=== PATIENT | female | born 1970 | race African-American/Black ===

== ENCOUNTER 2019-07-02 22:47 | Emergency (ER) | payer OTHER ==
[~2019-07-02] VITALS: Ht 152.4 cm; Wt 83.5 kg
[2019-07-02 23:53] LABS: ABSOLUTE NEUTROPHILS 6.2 thou/uL (1.4-8.2); BASOPHILS 0.7 % (0.0-2.0); EOSINOPHILS 0.5 % (0.0-3.0); HEMATOCRIT 38.3 % (37.0-47.0); HEMOGLOBIN 12.4 gm/dL (12.0-15.0); LYMPHOCYTES 17.8 % (24.0-44.0); MCH 28.4 pg (26.0-34.0); MCHC 32.5 g/dL (28.0-37.0); MCV 87.6 fL (80.0-100.0); MONOCYTES 7.8 % (1.0-8.0); PLATELET COUNT 302 thou/uL (150-400); POLYS 73.2 % (36.0-66.0); RBC 4.38 mil/uL (4.20-5.00); RDW 14.4 % (10.5-14.5); WBC 8.6 thou/uL (4.0-11.0)
[2019-07-02 23:59] LABS: CALCIUM 8.6 mg/dL (8.5-10.1); CREATININE 0.9 mg/dL (0.6-1.0); POTASSIUM 3.6 mmol/L (3.5-5.1)
[2019-07-02] MEDS ORDERED: EXCEDRIN MIGRA1 EAC1 PO (23:59)
[2019-07-03 00:06] LABS: ALBUMIN 3.2 g/dL (3.4-5.0); TOTAL BILIRUBIN 0.3 mg/dL (<0.1-1.0); TOTAL PROTEIN 6.9 g/dL (6.4-8.2)
[2019-07-03] MEDS ORDERED: ACETAMINOPHEN500 M1 PO (00:09)
[2019-07-03] MEDS ORDERED: REGLAN 10 MG TA10 MG PO (00:09)
[2019-07-03 00:37] VITALS: BP 118/79
== END 2019-07-03 00:49 | disposition home or self-care (01) ==
LOC: ER 22:47
PROVIDERS: Emergency Medicine
DX: G43.909 Migraine, unspecified, not intractable, without status migrainosus (principal); R11.10 Vomiting, unspecified

== ENCOUNTER 2019-07-05 19:36 | Emergency (ER) | payer OTHER ==
[~2019-07-05] VITALS: Ht 152.4 cm; Wt 83.0 kg
[~2019-07-05 19:36] MED LIST: ACETAMINOPHEN500 M1 PO; EXCEDRIN MIGRA1 EAC1 PO; REGLAN 10 MG TA10 MG PO
[2019-07-05 20:41] LABS: URINE BILIRUBIN NEGATIVE (Negative); URINE BLOOD 3+ (Negative); URINE CLARITY CLEAR; URINE COLOR YELLOW; URINE GLUCOSE-RANDOM* NEGATIVE (Negative); URINE KETONES TRACE (Negative); URINE NITRITE-REFLEX NEGATIVE (Negative); URINE PROTEIN (DIPSTICK) 1+ (Negative); URINE SPECIFIC GRAVITY 1.025 (1.005-1.035); URINE UROBILINOGEN 0.2 E.U./dl (0.2-1.0)
[2019-07-05 20:42] LABS: URINE LEUKOCYTES-REFLEX 1+ (Negative)
[2019-07-05 20:50] LABS: CASTS None Seen /LPF (None Seen); CRYSTALS None Seen /LPF (None Seen); SQUAMOUS 0-3 Few /LPF (0-3); URINE WBC-REFLEX >25 Many /HPF (0-5)
[2019-07-05 20:51] LABS: URINE RBC 3-10 Few /HPF (0-2)
[2019-07-05 20:52] LABS: HEMATOCRIT 37.1 % (37.0-47.0); HEMOGLOBIN 12.3 gm/dL (12.0-15.0); MCH 28.6 pg (26.0-34.0); MCHC 33.1 g/dL (28.0-37.0); MCV 86.4 fL (80.0-100.0); PLATELET COUNT 254 thou/uL (150-400); RDW 14.8 % (10.5-14.5); WBC 10.6 thou/uL (4.0-11.0)
[2019-07-05 20:59] LABS: CALCIUM 9.2 mg/dL (8.5-10.1); CREATININE 0.9 mg/dL (0.6-1.0); POTASSIUM 3.3 mmol/L (3.5-5.1)
[2019-07-05 21:28] LABS: ABSOLUTE NEUTROPHILS 9.5 thou/uL (1.4-8.2); ANISOCYTOSIS 1+
[2019-07-05] MEDS ORDERED: DOXYCYCLINE 10100 MG PO (22:39)
[2019-07-05 23:05] VITALS: BP 132/74
== END 2019-07-05 23:06 | disposition home or self-care (01) ==
LOC: ER 19:36
PROVIDERS: Emergency Medicine
DX: J18.9 Pneumonia, unspecified organism (principal); N39.0 Urinary tract infection, site not specified; R50.9 Fever, unspecified; R11.2 Nausea with vomiting, unspecified; I10 Essential (primary) hypertension; K21.9 Gastro-esophageal reflux disease without esophagitis; G43.909 Migraine, unspecified, not intractable, without status migrainosus

== ENCOUNTER 2019-07-08 22:51 | Emergency (ER) | payer OTHER ==
[~2019-07-08] VITALS: Ht 152.4 cm; Wt 83.0 kg
[~2019-07-08 22:51] MED LIST changes: +DOXYCYCLINE 10100 MG PO
[2019-07-08] MEDS ORDERED: AUGMENTIN 875-1 EACH PO (23:58)
[2019-07-09 00:16] VITALS: BP 156/99
== END 2019-07-09 00:17 | disposition home or self-care (01) ==
LOC: ER 22:51
DX: T36.4X5A Adverse effect of tetracyclines, initial encounter (principal); R10.13 Epigastric pain; I10 Essential (primary) hypertension; K21.9 Gastro-esophageal reflux disease without esophagitis; G43.909 Migraine, unspecified, not intractable, without status migrainosus; K58.9 Irritable bowel syndrome, unspecified; E66.9 Obesity, unspecified; Z68.35 Body mass index [BMI] 35.0-35.9, adult; Y92.89 Other specified places as the place of occurrence of the external cause

== ENCOUNTER 2019-10-17 21:23 | Emergency (ER) | payer OTHER ==
[~2019-10-17] VITALS: Ht 157.5 cm; Wt 83.5 kg
[~2019-10-17 21:23] MED LIST changes: +AUGMENTIN 875-1 EACH PO
[2019-10-17] MEDS ORDERED: NORVASC 2.5 MG2.5 M1 PO (21:35)
[2019-10-17 22:22] LABS: HEMATOCRIT 37.3 % (37.0-47.0); HEMOGLOBIN 12.2 gm/dL (12.0-15.0); MCH 28.6 pg (26.0-34.0); MCHC 32.6 g/dL (28.0-37.0); MCV 87.8 fL (80.0-100.0); PLATELET COUNT 250 thou/uL (150-400); RBC 4.25 mil/uL (4.20-5.00); RDW 15.7 % (10.5-14.5); WBC 3.3 thou/uL (4.0-11.0)
[2019-10-17 22:48] LABS: CALCIUM 8.2 mg/dL (8.5-10.1); POTASSIUM 3.1 mmol/L (3.5-5.1)
[2019-10-17 23:26] LABS: ABSOLUTE NEUTROPHILS 1.5 thou/uL (1.4-8.2); PLATELET ESTIMATE NORMAL
[2019-10-17] MEDS ORDERED: AUGMENTIN 875-1 EACH PO (23:53)
[2019-10-17] MEDS ORDERED: PROAIR HFA8.5 GM INH (23:53)
[2019-10-18 00:07] VITALS: BP 120/72
== END 2019-10-18 00:08 | disposition home or self-care (01) ==
LOC: ER 21:23
PROVIDERS: Emergency Medicine
DX: J18.9 Pneumonia, unspecified organism (principal); R19.7 Diarrhea, unspecified; I10 Essential (primary) hypertension; G43.909 Migraine, unspecified, not intractable, without status migrainosus; K21.9 Gastro-esophageal reflux disease without esophagitis; K58.9 Irritable bowel syndrome, unspecified

== ENCOUNTER 2019-10-21 18:29 | Emergency (ER) | payer OTHER ==
[~2019-10-21] VITALS: Ht 157.5 cm; Wt 84.4 kg
[~2019-10-21 18:29] MED LIST changes: +NORVASC 2.5 MG2.5 M1 PO; +PROAIR HFA8.5 GM INH
[2019-10-21] MEDS ORDERED: ALBUTEROL2.5 MG/31 INH (21:43)
[2019-10-21] MEDS ORDERED: MAGNESIUM400 MG PO (21:43)
[2019-10-21] MEDS ORDERED: SENOKOT8.6 MG PO (21:45)
[2019-10-21 22:58] VITALS: BP 176/105
== END 2019-10-21 22:50 | disposition home or self-care (01) ==
LOC: ER 18:29
DX: K21.9 Gastro-esophageal reflux disease without esophagitis (principal); K59.00 Constipation, unspecified; R11.2 Nausea with vomiting, unspecified; T36.1X5A Adverse effect of cephalosporins and other beta-lactam antibiotics, initial encounter; I10 Essential (primary) hypertension; K58.9 Irritable bowel syndrome, unspecified; G43.909 Migraine, unspecified, not intractable, without status migrainosus; Y92.89 Other specified places as the place of occurrence of the external cause

== ENCOUNTER 2020-07-13 09:36 | Emergency (ER) | payer OTHER ==
[~2020-07-13] VITALS: Ht 172.7 cm; Wt 92.5 kg
[~2020-07-13 09:36] MED LIST changes: +ALBUTEROL2.5 MG/31 INH; +MAGNESIUM400 MG PO; +SENOKOT8.6 MG PO
[2020-07-13] MEDS ORDERED: TESSALON PERLE100 MG PO (10:51)
[2020-07-13 11:00] VITALS: BP 162/92
== END 2020-07-13 11:32 | disposition home or self-care (01) ==
LOC: ER 09:36
DX: R05 Cough (principal); F12.90 Cannabis use, unspecified, uncomplicated; I10 Essential (primary) hypertension; K21.9 Gastro-esophageal reflux disease without esophagitis; Z79.899 Other long term (current) drug therapy

== ENCOUNTER 2020-09-08 21:42 | Inpatient (IN) | payer OTHER ==
[~2020-09-08] VITALS: Ht 152.4 cm; Wt 98.9 kg
[~2020-09-08 21:42] MED LIST changes: +TESSALON PERLE100 MG PO
[2020-09-08 21:44] VITALS: BP 183/115
[2020-09-08 22:06] LABS: URINE BILIRUBIN NEGATIVE (Negative); URINE BLOOD 2+ (Negative); URINE CLARITY CLEAR; URINE COLOR YELLOW; URINE GLUCOSE-RANDOM* NEGATIVE (Negative); URINE KETONES NEGATIVE (Negative); URINE LEUKOCYTES-REFLEX NEGATIVE (Negative); URINE NITRITE-REFLEX NEGATIVE (Negative); URINE PROTEIN (DIPSTICK) NEGATIVE (Negative); URINE SPECIFIC GRAVITY 1.015 (1.005-1.035); URINE UROBILINOGEN 0.2 E.U./dl (0.2-1.0)
[2020-09-08 22:23] LABS: ABSOLUTE NEUTROPHILS 3.3 thou/uL (1.4-8.2); BASOPHILS 0.8 % (0.0-2.0); HEMATOCRIT 37.6 % (37.0-47.0); HEMOGLOBIN 12.3 gm/dL (12.0-15.0); MCH 28.4 pg (26.0-34.0); MCHC 32.6 g/dL (28.0-37.0); MONOCYTES 7.4 % (1.0-8.0); PLATELET COUNT 303 thou/uL (150-400); POLYS 48.8 % (36.0-66.0); RBC 4.32 mil/uL (4.20-5.00); WBC 6.7 thou/uL (4.0-11.0)
[2020-09-08 22:31] LABS: ANION GAP 9 mmol/L (7-16); BUN 13 mg/dL (7-18); CALCIUM 8.8 mg/dL (8.5-10.1); CHLORIDE 107 mmol/L (98-107); CO2 26 mmol/L (21-32); CREATININE 0.9 mg/dL (0.6-1.0); GLUCOSE 108 mg/dL (74-106); POTASSIUM 3.9 mmol/L (3.5-5.1); SODIUM 142 mmol/L (136-145)
[2020-09-08 22:38] LABS: BACTERIA-REFLEX None Seen /HPF (None Seen); CASTS None Seen /LPF (None Seen); CRYSTALS None Seen /LPF (None Seen); MUCUS None Seen strn/LPF (None Seen); SQUAMOUS None Seen /LPF (0-3); URINE RBC 0-2 Rare /HPF (0-2); URINE WBC-REFLEX None Seen /HPF (0-5)
[2020-09-08 22:42] LABS: ALBUMIN 3.5 g/dL (3.4-5.0); LIPASE 111 U/L (73-393); SGOT 13 U/L (15-37); SGPT 25 U/L (30-65); TOTAL BILIRUBIN 0.2 mg/dL (0.2-1.0); TROPONIN-I <0.06 ng/mL (<0.06)
[2020-09-09 00:02] VITALS: BP 168/93
[2020-09-09 00:50] VITALS: BP 168/105
[2020-09-09 01:10] VITALS: BP 157/89
--- NOTE | 2020-09-09 04:41 | NUR ---
Pt. admitted from the emergency room around 0100 via staff. She is alert and oriented. Admission assessment and history is completed. She c/o abdominal pain and ivp pain medication given (see emar) with relief noted.
[2020-09-09 07:27] VITALS: BP 152/87
--- NOTE | 2020-09-09 07:49 | NUR ---
PATIENT IN BATHROOM AND NEEDING ASSISTANCE AT 0720. ASSESSMENT CHARTED. NO MEDS AT TIME OF ASSESSMENT. VSS; HX OF HTN. PATIENT AMBULATED TO BR W ASSISTANCE FROM THIS NURSE AND VERY WEAK. PATIENT WAS PALE AND APPEARED TO ALMOST HAVE A SYNCOPAL EPISODE BEFORE GETTING INTO BED. VOICED SEVERE NAUSEA AND HAD 1 EPISODE OF EMESIS. PROVIDER PAGED. AWAITING ORDERS/FURTHER INSTRUCTIONS. HIGH FALL PRECAUTIONS IN PLACE D/T NEW ONSET OF WEAKNESS. WILL CONTINUE TO MONITOR
[2020-09-09 15:43] VITALS: BP 144/94
--- NOTE | 2020-09-09 19:57 | NUR ---
REVIEWED ASSESSMENT AND NOTE OF JESS IRONER OR PRESSER AND I AGREE.
[2020-09-09 20:19] VITALS: BP 127/80
--- NOTE | 2020-09-10 04:41 | NUR ---
ASSUMED CAFE OF PT AT 1900HRS. PT AOX4 AND LETS NEEDS BE KNOWN. PT IS UP AD RICKEY. PT REPORTED SOME PAIN BUT DENIED NAUSEA OR SOA THIS SHIFT. NO BM NOTED BUT PT REPORTS PASSING GAS. PT WAS ABLE TO GET COMFORTABLE AND SLEEP PART OF THE SHIFT. VSS AND NO S/S OF ACUTE DISTRESS. WILL CONTINUE TO MONITOR FOR CHANGES.
[2020-09-10 05:33] LABS: HEMATOCRIT 35.4 % (37.0-47.0); HEMOGLOBIN 11.6 gm/dL (12.0-15.0); MCH 28.6 pg (26.0-34.0); MCHC 32.7 g/dL (28.0-37.0); MCV 87.3 fL (80.0-100.0); RBC 4.06 mil/uL (4.20-5.00); WBC 4.3 thou/uL (4.0-11.0)
[2020-09-10 05:41] LABS: CALCIUM 8.5 mg/dL (8.5-10.1); CREATININE 0.8 mg/dL (0.6-1.0); POTASSIUM 3.5 mmol/L (3.5-5.1)
[2020-09-10 07:27] VITALS: BP 129/90
--- NOTE | 2020-09-10 08:08 | NUR ---
RD consult received for "other". Admit with abdominal pain, constipation. Hx IBS and pt with extreme class III obesity, BMI 42.6. GERD, on miralax and pantoprazole. Clear liquid diet for now. Low nutrition risk. Follow for timely ability to advance diet within 5-7 days.
--- NOTE | 2020-09-10 13:17 | NUR ---
Received awake on bed. Due medications given as prescribed, able to swallow meds w/o difficulty. On room air. Vital signs stable. On MS, not on telemetry; no complains and signs of chest pain, crushing sensation. On clear liquids diet- tolerating well; no nausea, no vomiting and no abdominal pain. Continent of bowel and bladder, going to the toilet independently. With NS at 100cc/hr, infusing well at R AC, resited at L FA. Pt seen and examined by Dr Wheeler this AM, for abdominal CT scan with contrast; tolerated well, back to room safely. With relative at bedside, update given. Pt seen examined by SCOTT Cruz, bisacodyl supp given as prescribed- a/w pt to have a bowel movement- informed pt to notify staff once able to have a bowel movement. To continue monitoring patient.
--- NOTE | 2020-09-10 15:12 | NUR ---
PT ADMITTED RELATED TO ILEUS. CM REVIEWED CHART AND SPOKE WITH CARE TEAM. CM CALLED AND SPOKE WITH PT OVER THE PHONE THIS DAY. PT APPEARED TO BE A&O X4. CM ROLE INTRODUCED. PT INDICATED SHE LIVES IN A HOUSE WITH HER PAPA WITH 5 STEPS TO ENTER AND 4 STEPS INSIDE. 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 PT INDICATED THAT GOES TO THE [facility] FOR CARES IN THE COMMUNITY. PT INDICATED SHE HAS A BCBS INSURANCE THROUGH HER EMPLOYER. UR NURSE IS TRYING TO CONFIRM. CM TO FOLLOW [facility] P[facility]ET. PT INDICATED SHE PLANS TO RETURN HOME ONCE MEDICALLY STABLE. CM TO FOLLOW INDICATED WITH DC PLANNING.
[2020-09-10 16:53] VITALS: BP 155/97
[2020-09-10 19:31] VITALS: BP 158/100
[2020-09-10 20:31] VITALS: BP 143/84
--- NOTE | 2020-09-11 04:18 | NUR ---
Assumed pt care at 1900. A/OX4, VSS. Denies pain, N/V on assessment. Up ad mary to BR. IVF infusing w/o problems on LAC. Pt completed bowel prep before HS;having small loose stools at this time. Has been NPO since midnight. Resting w/o distress noted. Will continue to monitor pt.
--- NOTE | 2020-09-11 07:31 | EKG ---
[facility] [place] [address] ELECTROCARDIOGRAM REPORT Name: MAXX RENDON Room #: 454-P ADM IN M.R.#: [id number] Admission: 09/09/20 Attend Phys: Octavio Wheeler, Discharge: Date of : 70 Report #: [id number] THIS REPORT FOR: cc: [facility] - Clinic physician unknown [facility] - Clinic physician unknown Alverto Gamino MD [facility] ~ THIS REPORT FOR: //name// [facility] ED Test Date: 2020-09-08 Test Time: 22:19:03 Pat Name: MAXX RENDON Department: Room: [facility] Gender: F Co Pilot: : 1970 Requested By: Jose Juan Sinclair Order Number: [id number] MD: Alverto Gamino Measurements Intervals [place] Rate: 76 P: 77 LA: 129 QRS: 11 QRSD: 118 T: 12 QT: 382 QTc: 430 Interpretive Statements Sinus rhythm Left ventricular hypertrophy Artifact in lead(s) III,aVR,aVL,aVF,V1,V2,V3,V4,V5,V6 No previous ECG available for comparison Electronically Signed On 09-11-2020 7:30:59 TELEPHONE LINEMAN by Alverto Gamino [email or web address] <ELECTRONICALLY SIGNED> By: Alverto Gamino MD, FACC 09/11/20 0730 2219 2219 Alverto Gamino MD, [facility] /EPI
--- NOTE | 2020-09-11 12:02 | NUR ---
Assumed pt care at 7am.Pt in bed resting without c/o.Assessment completed.Pt wanted to know when she will be going for egd and colonoscopy today.Received call from preop and was told that pt will be pick up attendant at noon.Pt notified.At 12noon,pt left per bed to gi lab accompanied by her partner.Will continue to monitor.
--- NOTE | 2020-09-11 15:44 | NUR ---
PT HAD EGD AND COLONOSCOPY THIS DAY. CARE TEAM INDICATED THAT PT WILL LIKELY BE MEDICALLY STABLE TO DC HOME TOMORROW. CM TO FOLLOW INDICATED WITH DC PLANNING.
[2020-09-11] MEDS ORDERED: PROTONIX40 M2 PO (16:37)
[2020-09-11 17:36] VITALS: BP 143/84
--- NOTE | 2020-09-11 18:05 | NUR ---
Pt returned to floor around 1430 from gi lab in stable condition.Clear liq given and well tolerated.Dr Wheeler here later this afternoon and dc order noted. Dc summary compile and reviewed with pt and partner.At 1803,pt dc home per wc after saline lock dc'd.
--- NOTE | 2020-09-13 13:08 | PATH ---
[facility] [address] [place] [address] PATHOLOGY RPT PROCEDURE Name: STACI RENDON Room #: 454-P DIS IN M.R.#: [id number] Admission: 09/09/20 Date of : 70 Discharge: 09/11/20 Report #: [id number] Path Case #: [id number] LCA Accession Number: [id number] . 01 Material submitted: . stomach - RANDOM GASTRIC R/O H. PYLORI . 01 Clinical history: . ILEUS, ABDOMINAL PAIN, N/V, FAMILY HX COLON CA . 02 Diagnosis: Gastric mucosa, random gastric, rule out H. pylori, endoscopic biopsy: - Helicobacter pylori induced moderate chronic active gastritis. - Negative for intestinal metaplasia, atrophy or dysplasia. - Moderate number of Helicobacter pylori organisms present on the properly controlled immunohistochemical stain. (IUV:pit 09/13/2020) QTP 09/13/2020 1020 Local . 02 Electronically signed: . Karina Lake MD, Pathologist NPI- [id number] . 01 Gross description: . The specimen is received in formalin, labeled "Staci Rendon, random gastric, R/O H. pylori". Received are five segments of pale payan soft tissue ranging in size from 0.3 to 0.70 cm in maximum dimensions. The specimen is submitted entirely in cassette A1. (CAA; 09/12/2020) QAC/QA 09/12/2020 1739 Local . 02 Pathologist provided ICD-10: K29.50, B96.81 . 02 CPT . 750612, I58094 Specimen Comment: A courtesy copy of this report has been sent to [phone] Specimen Comment: Report sent to Performed at: [address] [id number] MD Paulo Wen MD Phone: [phone] Performed at: [address] [id number] MD Karina Lake MD Phone: [phone]
== END 2020-09-11 18:03 | disposition home or self-care (01) | DRG 390 ==
LOC: ER 21:42 → EROBS 09-09 00:10 → 4W 09-09 00:50
PROVIDERS: Emergency Medicine; Hospitalist; ADMIT Surgery; ATTEND Surgery
DX: K56.7 Ileus, unspecified (principal); K21.9 Gastro-esophageal reflux disease without esophagitis; I10 Essential (primary) hypertension; Z20.828 Contact with and (suspected) exposure to other viral communicable diseases; R13.10 Dysphagia, unspecified; G43.909 Migraine, unspecified, not intractable, without status migrainosus; K59.00 Constipation, unspecified; Z88.6 Allergy status to analgesic agent; Z90.49 Acquired absence of other specified parts of digestive tract; Z80.0 Family history of malignant neoplasm of digestive organs; Z79.899 Other long term (current) drug therapy
CPT/HCPCS: 10040; 10045; 62110; 62900; 70005

== ENCOUNTER 2020-12-11 22:56 | Emergency (ER) | payer OTHER ==
[~2020-12-11] VITALS: Ht 160 cm; Wt 88.9 kg
[~2020-12-11 22:56] MED LIST changes: +PROTONIX40 M2 PO
[2020-12-11 23:38] LABS: ABSOLUTE NEUTROPHILS 4.6 thou/uL (1.4-8.2); BASOPHILS 0.8 % (0.0-2.0); EOSINOPHILS 1.6 % (0.0-3.0); HEMATOCRIT 37.1 % (37.0-47.0); HEMOGLOBIN 11.8 gm/dL (12.0-15.0); LYMPHOCYTES 46.8 % (24.0-44.0); MCH 27.9 pg (26.0-34.0); MCHC 31.8 g/dL (28.0-37.0); MCV 87.8 fL (80.0-100.0); MONOCYTES 8.7 % (1.0-8.0); PLATELET COUNT 308 thou/uL (150-400); POLYS 42.1 % (36.0-66.0); RBC 4.22 mil/uL (4.20-5.00); RDW 15.6 % (10.5-14.5)
[2020-12-11 23:50] LABS: ALBUMIN 3.2 g/dL (3.4-5.0); AMYLASE 67 U/L (25-115); ANION GAP 10 mmol/L (7-16); CALCIUM 8.5 mg/dL (8.5-10.1); CHLORIDE 106 mmol/L (98-107); CO2 26 mmol/L (21-32); CREATININE 0.9 mg/dL (0.6-1.0); GLUCOSE 132 mg/dL (74-106); LIPASE 122 U/L (73-393); MAGNESIUM 1.7 mg/dL (1.8-2.4); PHOSPHORUS 2.5 mg/dL (2.6-4.7); POTASSIUM 3.8 mmol/L (3.5-5.1); SGOT 26 U/L (15-37); SGPT 21 U/L (14-59); SODIUM 142 mmol/L (136-145); TOTAL BILIRUBIN 0.3 mg/dL (0.2-1.0); TROPONIN-I <0.06 ng/mL (<0.06)
[2020-12-12 00:15] LABS: BUN 14 mg/dL (7-18); DIRECT BILIRUBIN < 0.1 mg/dL (<0.1-0.2)
[2020-12-12 00:36] VITALS: BP 113/64
--- NOTE | 2020-12-12 07:15 | EKG ---
[facility] [place] [place] [address] ELECTROCARDIOGRAM REPORT Name: MAXX RENDON Room #: DEP [facility]#: [id number] Admission: 12/11/20 Attend Phys: Discharge: 12/12/20 Date of : 70 Report #: [id number] [facility] ED Test Date: 2020-12-11 Test Time: 23:02:20 Pat Name: MAXX RENDON Department: Room: Gender: F Typing Teacher: [id number] : 1970 Requested By: Daniel Cunningham Order Number: [id number] MD: Alverto Gamino Measurements Intervals [place] Rate: 106 P: 57 RI: 145 QRS: 7 QRSD: 94 T: 34 QT: 351 QTc: 467 Interpretive Statements Sinus tachycardia Ventricular premature complex Probable left atrial enlargement Abnormal R-wave progression, early transition Left ventricular hypertrophy Compared to ECG 09/08/2020 22:19:03 Ventricular premature complex(es) now present Sinus rhythm no longer present Electronically Signed On 12-12-2020 7:15:16 MANTEL CRAFTSMAN by Alverto Gamino [email or web address] <ELECTRONICALLY SIGNED> By: Alverto Gamino MD, [facility] 12/12/2015 01 01 Alverto Gamino MD, [facility] /EPI
== END 2020-12-12 00:39 | disposition home or self-care (01) ==
LOC: ER 22:56
PROVIDERS: Emergency Medicine
DX: F41.9 Anxiety disorder, unspecified (principal); R07.9 Chest pain, unspecified; R06.00 Dyspnea, unspecified; E83.42 Hypomagnesemia; I10 Essential (primary) hypertension; K21.9 Gastro-esophageal reflux disease without esophagitis; G43.909 Migraine, unspecified, not intractable, without status migrainosus; Z79.899 Other long term (current) drug therapy; Z88.5 Allergy status to narcotic agent

== ENCOUNTER 2021-07-13 04:44 | Emergency (ER) | payer OTHER ==
[~2021-07-13] VITALS: Ht 160 cm; Wt 72.6 kg
[2021-07-13 05:33] LABS: ABSOLUTE NEUTROPHILS 6.2 thou/uL (1.4-8.2); BASOPHILS 0.6 % (0.0-2.0); EOSINOPHILS 0.7 % (0.0-3.0); HEMATOCRIT 33.9 % (37.0-47.0); HEMOGLOBIN 11.4 gm/dL (12.0-15.0); LYMPHOCYTES 18.6 % (24.0-44.0); MCH 29.7 pg (26.0-34.0); MCHC 33.6 g/dL (28.0-37.0); MCV 88.2 fL (80.0-100.0); MONOCYTES 8.8 % (1.0-8.0); PLATELET COUNT 227 thou/uL (150-400); POLYS 71.3 % (36.0-66.0); RBC 3.84 mil/uL (4.20-5.00); RDW 14.8 % (10.5-14.5); WBC 8.7 thou/uL (4.0-11.0)
[2021-07-13 05:50] LABS: CALCIUM 8.5 mg/dL (8.5-10.1); CREATININE 0.8 mg/dL (0.6-1.0); POTASSIUM 3.9 mmol/L (3.5-5.1)
[2021-07-13 05:54] LABS: ALBUMIN 3.1 g/dL (3.4-5.0); DIRECT BILIRUBIN 0.1 mg/dL (<0.1-0.2); TOTAL BILIRUBIN 0.6 mg/dL (0.2-1.0); TOTAL PROTEIN 6.6 g/dL (6.4-8.2)
[2021-07-13 06:29] LABS: URINE BILIRUBIN NEGATIVE (Negative); URINE BLOOD TRACE (Negative); URINE CLARITY CLEAR; URINE COLOR YELLOW; URINE GLUCOSE-RANDOM* NEGATIVE (Negative); URINE KETONES 2+ (Negative); URINE LEUKOCYTES-REFLEX NEGATIVE (Negative); URINE NITRITE-REFLEX NEGATIVE (Negative); URINE PROTEIN (DIPSTICK) NEGATIVE (Negative); URINE SPECIFIC GRAVITY 1.025 (1.005-1.035); URINE UROBILINOGEN 0.2 E.U./dl (0.2-1.0)
[2021-07-13] MEDS ORDERED: NORCO5 PO (08:22)
[2021-07-13 08:43] VITALS: BP 129/75
== END 2021-07-13 08:44 | disposition home or self-care (01) ==
LOC: ER 04:44
PROVIDERS: Student in an Organized Health Care Education/Training Program
DX: R10.84 Generalized abdominal pain (principal); R11.0 Nausea; I10 Essential (primary) hypertension; G43.909 Migraine, unspecified, not intractable, without status migrainosus; Z90.49 Acquired absence of other specified parts of digestive tract; Z98.890 Other specified postprocedural states

== ENCOUNTER 2021-07-16 05:22 | Emergency (ER) | payer OTHER ==
[~2021-07-16] VITALS: Ht 152.4 cm; Wt 89.8 kg
--- NOTE | ~2021-07-16 | EMS ---
[place] [id number] EMS Patient Care Report Name: MAXX RENDON Room #: DEP Hu#: [id number] Admission: 07/16/21 Attend Phys: Discharge: 07/16/21 Date of : 70 Report #: [id number] THIS REPORT FOR: //name// Report Transmitted: 07/19/2021 14:23 EMS Care Summary [place], [place]/[facility] Incident [id number] @ 07/16/2021 04:50 Incident Location [facility] [address] [place], [place] [id number] Patient MAXX RENDON Female, 50 Years 1970 Patient Address [facility] [address] [place], [place] [id number] Patient History Hypertension (HTN),Gastro-Esophageal Reflux Disease (GERD),Ovarian Cysts, Patient Allergies Codeine, Patient Medications Omeprazole, Oxycodone, Amlodipine, Chief Complaint ovarian cysts Disposition Transported No Lights/[place] Reason Hemorrhage/Laceration Transported To [facility] Narrative M36 dispatched on a hemorrhage. M36 arrived to home to find PT in bed. PT stated ovarian cysts as chief complaint. PT stated she went to [facility] for the same issue on . PT still had PT wristband on from [facility]. PT stated additional complaints of lower back pain and painful urination. PT [place] [id number] EMS Patient Care Report Name: MAXX RENDON Room #: DEP [facility]#: [id number] Admission: 07/16/21 Attend Phys: Discharge: 07/16/21 Date of : 70 Report #: [id number] assisted to walk to stretcher. PT sat on stretcher in position of comfort on right side. PT secured with seatbelts. Surgical mask placed on PT. No gross trauma or bleeding noted. During transport PT requested to adjust position of comfort. PT assisted to move. PT secured with seatbelts. PT vitals monitored during transport. PT report given. PT stood and pivoted from stretcher to chair in triage. PT care and belongings transferred to ER staff at [facility] without incident. M36 placed back in service. Initial Vitals @05:14P: 94,R: 22,BP: 124/78,Pain: 10/10,GCS: 15,SpO2: 96,Revised Trauma: 12, @05:06P: 108,R: 20,BP: 154/82,Pain: 10/10,GCS: 15,CO: 0,SpO2: 98,Revised Trauma: 12, Assessments @05:12MENTAL:Event Oriented,Time Oriented,Place Oriented,Person Oriented,SKIN:HEENT:LUNG SOUNDS:Right Lower: Tenderness,Right Lower: Guarding,Left Lower: Guarding,Left Lower: Tenderness,ABDOMEN:Right Lower: Tenderness,Right Lower: Guarding,Left Lower: Guarding,Left Lower: Tenderness,PELVIS//GI:Pelvis GUOther,EXTREMITIES:PULSE:Radial: 2+ Normal,NEURO: Impression Abdominal Pain Procedures @05:00ALS AssessmentResponse: UnchangedSucceeded Timeline 04:49,Call Received 04:49,Dispatch Notified 04:50,Dispatched 04:53,En Route 04:58,On Scene 04:58,At Patient 05:00,ALS Assessment,Response: UnchangedSucceeded, 05:06,BP: 154/82 M,PULSE: 108,RR: 20 R,SPO2: 98 Ox,ETCO2: ,BG: ,PAIN: 10,GCS: 15, 05:08,Depart Scene 05:14,BP: 124/78 M,PULSE: 94,RR: 22 R,SPO2: 96 Ox,ETCO2: ,BG: ,PAIN: 10,GCS: 15, 05:19,At Destination 05:35,Call Closed Disclaimer v1.1 Copyright 2020 [employer] [address] [address] EMS Patient Care Report Name: MAXX RENDON Room #: DEP [facility]#: [id number] Admission: 07/16/21 Attend Phys: Discharge: 07/16/21 Date of : 70 Report #: [id number] This EMS Care Summary contains data elements from the applicable legal record (which may be displayed differently). It is designed to provide pertinent information for the following purposes: continuity of care, clinical quality, and state data reporting. The complete legal record is available to ED staff and administrators of the receiving hospital in [employer]'s Patient Tracker. All data is provided "as is."
[~2021-07-16 05:22] MED LIST changes: +NORCO5 PO
[2021-07-16 06:09] LABS: ABSOLUTE NEUTROPHILS 6.9 thou/uL (1.4-8.2); BASOPHILS 0.3 % (0.0-2.0); EOSINOPHILS 0.9 % (0.0-3.0); HEMATOCRIT 32.9 % (37.0-47.0); HEMOGLOBIN 10.8 gm/dL (12.0-15.0); LYMPHOCYTES 15.5 % (24.0-44.0); MCH 29.1 pg (26.0-34.0); MCHC 32.8 g/dL (28.0-37.0); MCV 88.8 fL (80.0-100.0); MONOCYTES 10.9 % (1.0-8.0); PLATELET COUNT 338 thou/uL (150-400); POLYS 72.4 % (36.0-66.0); RBC 3.71 mil/uL (4.20-5.00); RDW 14.7 % (10.5-14.5); WBC 9.6 thou/uL (4.0-11.0)
[2021-07-16 06:16] LABS: URINE BILIRUBIN NEGATIVE (Negative); URINE BLOOD 3+ (Negative); URINE CLARITY CLOUDY; URINE COLOR RED; URINE GLUCOSE-RANDOM* NEGATIVE (Negative); URINE KETONES 1+ (Negative); URINE LEUKOCYTES-REFLEX TRACE (Negative); URINE NITRITE-REFLEX NEGATIVE (Negative); URINE PROTEIN (DIPSTICK) 2+ (Negative); URINE UROBILINOGEN 0.2 E.U./dl (0.2-1.0)
[2021-07-16 06:20] LABS: BACTERIA-REFLEX None Seen /HPF (None Seen); CASTS None Seen /LPF (None Seen); CRYSTALS None Seen /LPF (None Seen); SQUAMOUS 0-3 Few /LPF (0-3); URINE RBC >20 Many /HPF (NONE SEEN); URINE WBC-REFLEX 0-5 Rare /HPF (0-5)
[2021-07-16 06:21] LABS: CALCIUM 8.3 mg/dL (8.5-10.1); CREATININE 0.8 mg/dL (0.6-1.0); POTASSIUM 3.3 mmol/L (3.5-5.1)
[2021-07-16 06:27] LABS: ALBUMIN 2.7 g/dL (3.4-5.0); TOTAL BILIRUBIN 0.4 mg/dL (0.2-1.0); TOTAL PROTEIN 6.9 g/dL (6.4-8.2)
[2021-07-16] MEDS ORDERED: KLOR-CON M2020 MEQ PO (11:10)
[2021-07-16] MEDS ORDERED: PERCOCET 5-3251 EACH PO (11:10)
[2021-07-16 11:27] VITALS: BP 143/95
== END 2021-07-16 11:28 | disposition home or self-care (01) ==
LOC: ER 05:22
PROVIDERS: Emergency Medicine
DX: K59.00 Constipation, unspecified (principal); E87.6 Hypokalemia; N89.8 Other specified noninflammatory disorders of vagina; I10 Essential (primary) hypertension; K21.9 Gastro-esophageal reflux disease without esophagitis; G43.909 Migraine, unspecified, not intractable, without status migrainosus; F12.90 Cannabis use, unspecified, uncomplicated; Z98.890 Other specified postprocedural states; Z79.51 Long term (current) use of inhaled steroids; Z79.891 Long term (current) use of opiate analgesic; Z79.899 Other long term (current) drug therapy; Z88.5 Allergy status to narcotic agent